=== PATIENT | male | born 2000 | race Caucasian/White ===

== ENCOUNTER 2018-04-08 09:08 | Emergency (ER) | payer OTHER ==
[~2018-04-08] VITALS: Ht 177.8 cm; Wt 80.0 kg
[2018-04-08 09:11] VITALS: BP 121/72; PULSE 75; RESP 18; Ht 177.8 cm; Wt 80.0 kg
[2018-04-08] MEDS ORDERED: ACYC800T5 PO (10:24)
[2018-04-08] MEDS ORDERED: HC30CR25 TOP (10:24)
--- NOTE | 2018-04-08 10:28 | ERD ---
ER Documentation Chief Complaint Chief Complaint pt is bib family with c/o left eye pain starting Thurs, + swelling noted HPI This 17-year-old male presents with a rash on the left side of his face for the last 2 days. Is on his left upper and lower eyelid in his perioral area on the left side. He has minimal pain. Is mostly itchy. He also has cough and congestion. Denies any visual changes or visual field deficits. Vaccinations up-to-date. Denies any pain in the eyeball. Symptoms are restricted to the skin ROS All systems reviewed and are negative except as per history of present illness. Medications Home Meds Active Scripts Acyclovir* (Zovirax*) 800 Mg Tablet, 800 MG PO 5 TIMES DAILY for 7 Days, TAB Prov:FERNANDO NOYOLA MD 04/08/18 Hydrocortisone* Topical (Hydrocortisone* Topical) 2.5%-28.3 Gm Cream..g., 1 APPLIC TOP BID for 7 Days, #1 TUB Prov:FERNANDO NOYOLA MD 04/08/18 Allergies Allergies: Coded Allergies: No Known Allergy (Unverified , 04/08/18) PMhx/Soc Hx Alcohol Use: No Hx Substance Use: No Hx Tobacco Use: No Smoking Status: Never smoker FmHx Family History: No diabetes, No coronary disease, No other Physical Exam Vitals Vital Signs Date Temp Pulse Resp B/P (MAP) Pulse Ox O2 O2 Flow FiO2 Time Delivery Rate 04/08/18 98.3 75 18 121/72 98 09:11 (88) Physical Exam Const: No acute distress Head: Atraumatic Eyes: Normal Conjunctiva ENT: Normal External Ears, Nose and Mouth. The left upper eyelid and lower eyelid and extending down into the left cheek and periorbital area there is small erythematous vesicular type lesions which are dry. Nontender. No lymphadenitis. Airway patent. No Lyon sign Neck: Full range of motion. No meningismus. Resp: Clear to auscultation bilaterally Cardio: Regular rate and rhythm, no murmurs Abd: Soft, non tender, non distended. Normal bowel sounds Skin: No petechiae or rashes Back: No midline or flank tenderness Ext: No cyanosis, or edema Neur: Awake and alert Psych: Normal Mood and Affect Results 24 hrs Current Medications Medications Dose Sig/Yuriy Start Time Status Last (Trade) Ordered Route PRN Stop Time Admin Dose Reason Admin 8 mg ONCE ONCE 04/08/18 UNV Dexamethasone PO 10:30 (Decadron) 04/08/18 10:31 Acyclovir 800 mg ONCE ONCE 04/08/18 UNV (Zovirax) PO 10:30 04/08/18 10:31 Procedures/MDM 17-year-old male presents with a rash on the left side of his face. Clinically it appears to possibly be shingles but patient does not have associated symptoms of pain and is not obviously in the V1 distribution or specific dermatomal distribution. There is no discharge or erythema or induration to suggest suggest bacterial infection. May be nonspecific dermatitis or viral exanthem. We will treat for worse case scenario with acyclovir, 8 mg Decadron here, hydrocortisone and acyclovir at home and return precautions for visual changes, worsening pain, redness, swelling, new worsening symptoms with primary care doctor. Visual acuity shows no significant acute abnormalities. The patient was stable with no new complaints during the ER course. Clinically, there is no current evidence to suggest meningitis, sepsis, acute abdomen, pneumonia, stroke, acute coronary syndrome, pulmonary embolism, aortic dissection or any other emergent condition appearing to require further evaluation or hospitalization. Patient counseled regarding my diagnostic impression and care plan. Prior to discharge all questions answered. Pt agrees with treatment plan and understands strict return precautions. Pt is instructed to follow up with primary care provider within 24-48 hours. Precautionary instructions provided including instructions to return to the ER if not improving or for any worsening or changing symptoms or concerns. Departure Diagnosis: Primary Impression: Dermatitis Condition: Stable Patient Instructions: Shingles (Herpes Zoster), Dermatitis, Non-Specific Additional Instructions: posiblemente varicella. Cheque otro vez con cardoso doctor primario en el proximo palomino or regresa para mas o nueva simptomas. May be viral infection or shingles. Recheck for worsening redness, visual changes, pain, fevers, new or worsening symptoms in the next 1-2 days. FERNANDO NOYOLA MD Apr 08, 2018 10:27
[2018-04-08] MEDS ORDERED: DEXAMETHASONE 4 MG TAB PO ONE (10:30)
[2018-04-08] MEDS ORDERED: ACYCLOVIR 800 MG TAB PO ONE (10:30)
== END 2018-04-08 10:58 | disposition home or self-care (01) ==
LOC: FTE 09:08
DX: H01.114 Allergic dermatitis of left upper eyelid (principal); H01.115 Allergic dermatitis of left lower eyelid
CPT/HCPCS: Z7502; Z7610; 99283

== ENCOUNTER 2018-06-29 13:12 | Emergency (ER) | payer OTHER ==
[~2018-06-29] VITALS: Ht 177.8 cm; Wt 81.6 kg
[~2018-06-29 13:12] MED LIST: ACYC800T5 PO; HC30CR25 TOP
[2018-06-29 13:16] VITALS: BP 132/60; PULSE 66; RESP 20; Ht 177.8 cm; Wt 81.6 kg
[2018-06-29] MEDS ORDERED: CETI10CA PO (14:09)
[2018-06-29] MEDS ORDERED: HC30CR25 TOP (14:09)
--- NOTE | 2018-06-29 14:12 | ERD ---
ER Documentation Chief Complaint Chief Complaint R eye redness and discharge x 2 days HPI 17-year-old male presents with a rash around his right orbital area for the last 2 days. It is itchy. He has minimal pain. No visual changes, recent URIs, discharge. Patient was treated for similar rash on his left orbital area by me a few months ago. Responded to 1 dose of Decadron, hydrocortisone although he was given acyclovir for concern for possible shingles. ROS All systems reviewed and are negative except as per history of present illness. Medications Home Meds Active Scripts Hydrocortisone* Topical (Hydrocortisone* Topical) 2.5%-28.3 Gm Cream..g., 1 APPLIC TOP BID for 7 Days, #1 TUB Prov:FERNANDO NOYOLA MD 06/29/18 Cetirizine Hcl* (Zyrtec*) 10 Mg Capsule, 10 MG PO DAILY, #15 TAB.CHEW Prov:FERNANDO NOYOLA MD 06/29/18 Acyclovir* (Zovirax*) 800 Mg Tablet, 800 MG PO 5 TIMES DAILY for 7 Days, TAB Prov:FERNANDO NOYOLA MD 04/08/18 Hydrocortisone* Topical (Hydrocortisone* Topical) 2.5%-28.3 Gm Cream..g., 1 APPLIC TOP BID for 7 Days, #1 TUB Prov:FERNANDO NOYOLA MD 04/08/18 Allergies Allergies: Coded Allergies: No Known Allergy (Unverified , 06/29/18) PMhx/Soc Medical and Surgical Hx: pt denies Medical Hx, pt denies Surgical Hx Hx Alcohol Use: No Hx Substance Use: No Hx Tobacco Use: No FmHx Family History: No diabetes, No coronary disease, No other Physical Exam Vitals Vital Signs Date Temp Pulse Resp B/P (MAP) Pulse Ox O2 O2 Flow FiO2 Time Delivery Rate 06/29/18 98.2 66 20 132/60 98 13:16 (84) Physical Exam Const: No acute distress Head: Atraumatic Eyes: Normal Conjunctiva. Sclera normal and eyes Chetan and extraocular movements intact. Right periorbital area with erythematous wheal type lesions which are blanching. No proptosis or abnormal abdomens. No fluctuance or discharge or open lesions. ENT: Normal External Ears, Nose and Mouth. Neck: Full range of motion. No meningismus. Resp: Clear to auscultation bilaterally Cardio: Regular rate and rhythm, no murmurs Abd: Soft, non tender, non distended. Normal bowel sounds Skin: No petechiae or rashes Back: No midline or flank tenderness Ext: No cyanosis, or edema Neur: Awake and alert Psych: Normal Mood and Affect Results 24 hrs Current Medications Medications Dose Sig/Yuriy Start Time Status Last (Trade) Ordered Route PRN Stop Time Admin Dose Reason Admin 12 mg ONCE ONCE 06/29/18 DC 06/29/18 Dexamethasone PO 14:30 14:25 (Decadron) 06/29/18 14:31 Procedures/MDM Patient presents with dermatitis right periorbital area. He had similar rash on the left orbital area a few months ago which would rule out shingles as original cause. He may have an unspecified contact dermatitis despite no known exposure. He has no evidence of involvement of the globe or visual changes or signs or symptoms of additional eye emergencies. We will give Decadron 12 mg by mouth, treat with Zyrtec, hydrocortisone, further observation at home and return precautions worsening redness, fevers, pain, visual changes, new worsening symptoms. He has no signs of orbital or periorbital cellulitis. Patient has no signs or symptoms of visual changes, visual field deficits. There are no signs or symptoms to suggest orbital cellulitis, retinal detachment, optic neuritis, retinal artery ischemia, dendritic lesions, ulcers, threats to vision or additional eye emergencies. Doubt acute glaucoma. Patient will be discharged home with recommendations for primary care and ophthalmology follow-up within the next 1-2 days. They should otherwise return to the ER for persistent or worsening symptoms. Departure Diagnosis: Primary Impression: Dermatitis Condition: Stable Patient Instructions: Dermatitis, Non-Specific Additional Instructions: suspect allergic cause. Recheck for worsening redness or any pain or visual changes. Observe environment for potential cause of allergies. She denies any FERNANDO NOYOLA MD Jun 29, 2018 14:12
[2018-06-29] MEDS ORDERED: DEXAMETHASONE 4 MG TAB PO ONE (14:30)
== END 2018-06-29 14:58 | disposition home or self-care (01) ==
LOC: FTE 13:12
DX: L30.9 Dermatitis, unspecified (principal)
CPT/HCPCS: Z7502; Z7610; 99283